=== PATIENT | female | born 1995 | race Caucasian/White ===

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

== ENCOUNTER 2021-11-29 10:53 | Inpatient (IN) | payer OTHER ==
[2021-11-29] MEDS ORDERED: DEXTROSE 5%-LACTATED RINGERS 500 ML IV SCH (11:30)
[2021-11-29] MEDS ORDERED: DEXTROSE 5%-LACTATED RINGERS 1,000 ML IV SCH (12:30)
[2021-11-29] MEDS ORDERED: AMPICILLIN - 2 GM in SODIUM CHLORIDE 100 ML IVPB ONE (13:00)
[2021-11-29] MEDS ORDERED: AMPICILLIN SODIUM 2 GM VIAL ONE (13:10)
[2021-11-29 13:26] VITALS: BMI 36.1
[2021-11-29 13:56] LABS: BASO % 0.3 % (0-2.0); EOS % 0.6 % (0-4.5); HEMATOCRIT 33.2 % (32.4-45.2); HEMOGLOBIN 10.9 GM/dL (10.7-15.3); LYMPH % 22.9 % (8-40); MCH 27.5 pg (25.7-33.7); MCHC 32.7 g/dl (32.0-36.0); MEAN CELL VOLUME 84.1 fl (80-96); MEAN PLT VOLUME 7.7 fl (7.5-11.1); MONO % 8.3 % (3.8-10.2); NEUT % 67.9 % (42.8-82.8); PLATELET COUNT 241 10^3/uL (134-434); RBC 3.95 M/mm3 (3.60-5.2); RDW 13.5 % (11.6-15.6); WHITE BLOOD COUNT 6.1 K/mm3 (4.0-10.0)
[2021-11-29 14:00] LABS: EPI CELLS 8 /uL (0-25.1); HYALINE CASTS 9 /uL (0-3.1); URINE APPEARANCE TURBID; URINE BACTERIA >9,000 /uL (0-1359); URINE BILIRUBIN NEGATIVE (NEGATIVE); URINE COLOR YELLOW; URINE GLUCOSE (UA) NEGATIVE (NEGATIVE); URINE KETONE NEGATIVE (NEGATIVE); URINE LEUK ESTERASE 3+ (NEGATIVE); URINE NITRITE NEGATIVE (NEGATIVE); URINE PROTEIN 1+ (NEGATIVE); URINE RBC 51 /uL (0-23.9); URINE WBC 4014 /uL (0-25.8)
[2021-11-29] MEDS: ELECTROLYTE-148 SOLN 1,000 ML IV SCH (14:00)
[2021-11-29 14:09] LABS: INR 1.09 (0.83-1.09); PROTHROMBIN TIME (PATIENT) 12.6 SEC (9.7-13.0)
[2021-11-29 14:12] LABS: ACTIVATED PTT 27.2 SECONDS (25.2-36.5)
[2021-11-29 14:13] LABS: CALCIUM 8.9 mg/dL (8.5-10.1)
[2021-11-29 14:14] LABS: ALBUMIN 2.8 g/dl (3.4-5.0); BLOOD UREA NITROGEN 7.4 mg/dL (7-18)
[2021-11-29 14:17] LABS: CREATININE 0.5 mg/dL (0.55-1.3)
[2021-11-29 14:18] LABS: TOT PROT 6.3 g/dl (6.4-8.2)
[2021-11-29 14:19] LABS: BILIRUBIN,TOTAL 0.2 mg/dL (0.2-1)
[2021-11-29] MEDS ORDERED: BUTORPHANOL TARTRATE 1 MG/ML VIAL IVPB PRN (14:55)
[2021-11-29] MEDS ORDERED: PROMETHAZINE HCL 25 MG/1 ML VIAL IVPUSH ONE (14:55)
[2021-11-29] MEDS ORDERED: BUTORPHANOL TARTRATE 2 MG/ML VIAL ONE (14:57)
[2021-11-29] MEDS ORDERED: ELECTROLYTE-148 SOLN 1,000 ML IV SCH (15:00)
[2021-11-29] MEDS ORDERED: AMPICILLIN SODIUM 1 GM VIAL ONE ×2 (16:17→21:07)
[2021-11-29] MEDS: AMPICILLIN - 1 GM in SODIUM CHLORIDE 100 ML IVPB SCH ×2 (16:43→21:10)
[2021-11-29] MEDS ORDERED: FENTANYL/BUPIVACAINE/NS/PF - PCEA - 50 ML DISP.SYRIN EP ONE (19:33)
[2021-11-29] MEDS: FENTANYL/BUPIVACAINE/NS/PF - PCEA - 50 ML DISP.SYRIN EP SCH (20:20)
[2021-11-29] MEDS ORDERED: NALOXONE HCL 0.4 MG/ML VIAL IVPUSH PRN (20:24)
[2021-11-29] MEDS ORDERED: OXYTOCIN 30 UNITS in 0.9% NS 30 UNIT/500 ML INFUS.BAG IVPB SCH (22:15)
[2021-11-30] MEDS ORDERED: FENTANYL/BUPIVACAINE/NS/PF - PCEA - 50 ML DISP.SYRIN EP ONE (00:06)
[2021-11-30] MEDS ORDERED: OXYTOCIN 20 UNITS in 0.9% NS 20 UNIT/1,000 ML INFUS.BAG IV ONE (00:43)
[2021-11-30] MEDS ORDERED: LIDOCAINE HCL 1% PRESERVATIVE FREE - 30ML VIAL ONE (00:43)
[2021-11-30] MEDS ORDERED: METHYLERGONOVINE MALEATE 0.2 MG/1 ML AMP IM PRN (01:40)
[2021-11-30] MEDS ORDERED: oxyCODONE HCL 5 MG TABLET PO PRN (01:40)
[2021-11-30] MEDS ORDERED: BENZOCAINE 20% 57 GM BOTTLE TP PRN (01:40)
[2021-11-30] MEDS ORDERED: BISACODYL 10 MG SUPP.RECT RC PRN (01:40)
[2021-11-30] MEDS ORDERED: WITCH HAZEL 50% (TUCKS) 40 PAD/JAR PAD TP PRN (01:40)
[2021-11-30] MEDS ORDERED: BENZOCAINE 28 GM HEMORRHOIDAL OINTMENT TP PRN (01:40)
[2021-11-30] MEDS ORDERED: ACETAMINOPHEN 325 MG TABLET (FP) PO PRN (01:40)
[2021-11-30] MEDS ORDERED: OXYTOCIN 20 UNITS in 0.9% NS 20 UNIT/1,000 ML INFUS.BAG IV SCH (01:45)
[2021-11-30] MEDS ORDERED: D5W-LR W/ 20 UNITS OXYTOCIN 1,000 ML IV SCH (01:45)
[2021-11-30] MEDS ORDERED: IBUPROFEN 600 MG TABLET (FP) PO ONE (02:01)
[2021-11-30] MEDS: IBUPROFEN 600 MG TABLET (FP) PO PRN ×4 (02:05→22:23)
[2021-11-30 02:47] LABS: CORD BASE EXCESS -0.1 mmol/L (0-2); CORD HCO3 24.4 mmHg (20-29); CORD PCO2 39.5 mmHg (30-78); CORD pH 7.408 (7.14-7.44)
[2021-11-30 02:48] LABS: CORD BASE EXCESS -1.9 mmol/L (0-2); CORD HCO3 25.3 mmHg (20-29); CORD PCO2 52.1 mmHg (30-78); CORD pH 7.304 (7.14-7.44)
[2021-11-30] MEDS ORDERED: AMPICILLIN SODIUM 1 GM VIAL ONE ×4 (02:52→21:21)
[2021-11-30] MEDS: AMPICILLIN - 1 GM in SODIUM CHLORIDE 100 ML IVPB SCH ×5 (03:00→21:35)
[2021-11-30] MEDS ORDERED: SODIUM CHLORIDE 100 ML IVPB ONE ×3 (09:45→21:21)
[2021-11-30] MEDS: PRENATAL VITAMINS W/ FOLIC ACID TABLET (FP) PO SCH (09:54)
[2021-11-30] MEDS: FENTANYL/BUPIVACAINE/NS/PF - PCEA - 50 ML DISP.SYRIN EP SCH (21:25)
[2021-11-30] MEDS: ELECTROLYTE-148 SOLN 1,000 ML IV SCH (23:47)
[2021-12-01] MEDS ORDERED: AMPICILLIN SODIUM 1 GM VIAL ONE ×3 (02:08→15:08)
[2021-12-01] MEDS ORDERED: SODIUM CHLORIDE 100 ML IVPB ONE ×3 (02:08→15:08)
[2021-12-01] MEDS: AMPICILLIN - 1 GM in SODIUM CHLORIDE 100 ML IVPB SCH ×3 (02:18→15:21)
[2021-12-01] MEDS: IBUPROFEN 600 MG TABLET (FP) PO PRN ×3 (07:26→20:55)
[2021-12-01 09:25] LABS: BASO % 0.3 % (0-2.0); EOS % 1.4 % (0-4.5); HEMATOCRIT 31.2 % (32.4-45.2); HEMOGLOBIN 10.4 GM/dL (10.7-15.3); MCH 27.5 pg (25.7-33.7); MCHC 33.2 g/dl (32.0-36.0); MEAN CELL VOLUME 82.9 fl (80-96); MEAN PLT VOLUME 7.1 fl (7.5-11.1); MONO % 7.9 % (3.8-10.2); NEUT % 62.4 % (42.8-82.8); PLATELET COUNT 198 10^3/uL (134-434); RBC 3.77 M/mm3 (3.60-5.2); RDW 13.7 % (11.6-15.6); WHITE BLOOD COUNT 5.6 K/mm3 (4.0-10.0)
[2021-12-01] MEDS: PRENATAL VITAMINS W/ FOLIC ACID TABLET (FP) PO SCH (09:45)
[2021-12-01] MEDS ORDERED: SENNOSIDES/DOCUSATE COMBO (SENNA PLUS) TABLET (UD) PO PRN (22:00)
[2021-12-01] MEDS: ELECTROLYTE-148 SOLN 1,000 ML IV SCH (23:18)
[2021-12-02] MEDS: IBUPROFEN 600 MG TABLET (FP) PO PRN (07:57)
[2021-12-02] MEDS: PRENATAL VITAMINS W/ FOLIC ACID TABLET (FP) PO SCH (09:47)
[2021-12-02 11:26] VITALS: BP 114/75; PULSE 73; TEMP 97.8
== END 2021-12-02 13:30 | disposition home or self-care (01) | DRG 560 ==
LOC: JDEL 10:53 → JLDR 12:45 → J3W 11-30 02:40
PROVIDERS: ADMIT Obstetrics & Gynecology; ATTEND Obstetrics & Gynecology
PROC: 10E0XZZ Delivery of Products of Conception, External Approach (ICD-10-PCS; principal; 2021-11-29)
DX: O62.3 Precipitate labor (principal); O77.0 Labor and delivery complicated by meconium in amniotic fluid; Z3A.39 39 weeks gestation of pregnancy; Z37.0 Single live birth
CPT/HCPCS: 36415; 36600; 59025; 59409; 80053; 81003; 82803; 84550; 85025; 85610; 85730; 86780; 86850; 86900; 86901; C9803; U0003; U0005